=== PATIENT | male | born 1970 | race Caucasian/White ===

== ENCOUNTER 2021-06-09 19:15 | Emergency (ER) | payer OTHER ==
[2021-06-09 20:16] LABS: BASOPHIL 0.3 % (0-2); EOSINOPHIL 0.2 % (0-5); HCT 45.6 % (42.0-52.0); HGB 15.8 g/dl (13.2-18.0); LYMPHOCYTE 21.6 % (15-48); MCH 30.9 pg (25.0-31.0); MCHC 34.6 g/dL (32.0-36.0); MCV 89.2 fL (78.0-100.0); MONOCYTE 9.2 % (0-12); MPV 11.4 fL (6.0-9.5); NRBC 0; PLT 135 K/uL (150-400); RBC 5.11 M/uL (4.70-6.00); RDW 13.1 % (11.5-14.0)
[2021-06-09 20:21] LABS: INR 0.97 (0.9-1.2); PROTHROMBIN TIME 12.3 SECONDS (11.8-13.4); PTT 33.8 SECONDS (24.4-34.7)
[2021-06-09 20:22] LABS: D-DIMER 0.67 ug/mLFEU (0.00-0.41)
[2021-06-09 20:32] LABS: LACTIC ACID 0.8 mmol/L (0.4-1.9)
[2021-06-09 20:37] LABS: ALBUMIN 3.6 g/dL (3.4-5.0); BILIRUBIN - TOTAL 0.4 mg/dL (0.2-1.0); BUN/CREAT RATIO (CALC) 18.5 RATIO; CREATININE 1.08 mg/dL (0.67-1.17); GLOBULIN (CALCULATION) 3.9 g/dL; POTASSIUM 4.1 mmol/L (3.5-5.1); TOTAL PROTEIN 7.5 g/dL (6.4-8.2)
[2021-06-09 21:10] LABS: INFLUENZA A NAA NEGATIVE (NEGATIVE)
[2021-06-09 21:14] LABS: CORONAVIRUS 2019 SARS-COV-2 POSITIVE (NEGATIVE)
== END 2021-06-09 22:30 | disposition home or self-care (01) ==
LOC: FER 19:15
PROVIDERS: Nurse Practitioner Family
DX: U07.1 COVID-19 (principal)
CPT/HCPCS: 36415; 70450; 71046; 72125; 80053; 83605; 84145; 84484; 85025; 85379; 85610; 85730; 87040; 93005; U0002